=== PATIENT | female | born 1970 | race Caucasian/White ===

== ENCOUNTER 2017-10-13 11:14 | Emergency (ER) | payer MEDICAID ==
[2017-10-13] MEDS ORDERED: Lactated Ringer's 1,000 ML IV STA (12:33)
[2017-10-13 12:56] LABS: BASO % 0.7 % (0.0-2.0); HEMATOCRIT 37.9 % (34.0-47.0); LYMPH # 1.3 K/uL (1.0-4.3); LYMPH % 21.5 % (20.0-40.0); MEAN CORPUSCULAR HEMOGLOBIN 31.4 pg (27.0-31.0); MEAN CORPUSCULAR HGB CONC 34.6 g/dL (33.0-37.0); MEAN PLATELET VOLUME 9.3 fL (7.2-11.7); MONO # 0.5 K/uL (0.0-0.8); NRBC % 0.1 % (0.0-2.0); RED CELL DISTRIBUTION WIDTH 14.3 % (11.5-14.5)
[2017-10-13 13:00] LABS: MEAN CELL VOLUME 90.5 fL (81.0-99.0); WHITE BLOOD COUNT 6.1 K/uL (4.8-10.8)
[2017-10-13 13:16] LABS: ALKALINE PHOSPHATASE 77 U/L (38-126); ALT/SGPT 41 U/L (9-52); AST/SGOT 31 U/L (14-36); BILIRUBIN,TOTAL 0.4 mg/dL (0.2-1.3); BLOOD UREA NITROGEN 18 mg/dL (7-17); CALCIUM 8.5 mg/dl (8.6-10.4); CARBON DIOXIDE 25 mmol/L (22-30); CHLORIDE 100 mmol/L (98-107); GFR AFRICAN-AMERICAN 58; GLUCOSE,RANDOM 177 mg/dL (65-105); POTASSIUM 3.9 mmol/L (3.6-5.2); SODIUM 135 mmol/L (132-148); TOTAL PROTEIN 7.8 g/dL (6.3-8.3)
--- NOTE | 2017-10-13 13:29 | RAD ---
Chest x-ray single frontal view History: Cough. Comparison: 02/13/2016 Findings: No focal infiltrate or effusion. Heart size within normal limits. Impression: No focal infiltrate or effusion.
[2017-10-13 14:31] VITALS: BP 100/66; PULSE 78; RESP 18; TEMP 98.8; O2SAT 99
--- NOTE | 2017-10-13 15:13 | C.PDOC ---
History Of Present Illness 47yo female, presents for evaluation of flu like symptoms and fever since yesterday. Patient also reports a dry cough and possible sick contacts at work. She denies any chest pain, shortness of breath. Of note, patient has a secondary complaint of an itchy rash to her face present since this morning. Time Seen by Provider: 10/13/17 12:11 Chief Complaint (Nursing): Flu-like Symptoms History Per: Patient History/Exam Limitations: no limitations Onset/Duration Of Symptoms: Days Current Symptoms Are (Timing): Still Present Associated Symptoms: Cough. denies: Fever Past Medical History Reviewed: Historical Data, Nursing Documentation, Vital Signs Vital Signs: Last Vital Signs Temp 98.8 F 10/13/17 14:20 Pulse 78 10/13/17 14:20 Resp 18 10/13/17 14:20 BP 100/66 10/13/17 14:20 Pulse Ox 99 10/13/17 15:16 - Medical History PMH: Diabetes, HTN, Rheumatoid Arthritis Surgical History: Cholecystectomy Family History: States: Unknown Family Hx - Social History Hx Tobacco Use: Yes Hx Alcohol Use: No Hx Substance Use: No - Immunization History Hx Tetanus Toxoid Vaccination: No Hx Influenza Vaccination: No Hx Pneumococcal Vaccination: No Review Of Systems Except As Marked, All Systems Reviewed And Found Negative. Constitutional: Negative for: Fever Cardiovascular: Negative for: Chest Pain Respiratory: Positive for: Cough. Negative for: Shortness of Breath Skin: Positive for: Rash Physical Exam - Physical Exam Appears: Non-toxic, No Acute Distress Skin: Normal Color, Rash (macular-papular rash to face) Head: Atraumatic, Normacephalic Eye(s): bilateral: Normal Inspection Nose: Normal Oral Mucosa: Moist Neck: Normal ROM, Supple Cardiovascular: Rhythm Regular Respiratory: Normal Breath Sounds Gastrointestinal/Abdominal: Normal Exam, Soft, No Tenderness Neurological/Psych: Oriented x3 ED Course And Treatment - Laboratory Results Result Diagrams: 10/13/17 12:52 10/13/17 12:52 O2 Sat by Pulse Oximetry: 99 (RA) Pulse Ox Interpretation: Normal Progress Note: Patient to be discharged home with Tamiflu and steroids. Disposition - Disposition Referrals: Geremias Romero, [Non-Staff] - Disposition: HOME/ ROUTINE Disposition Time: 13:30 Condition: GOOD Additional Instructions: Thank you for letting us take care of you today. The emergency medical care you received today was directed at your acute symptoms. If you were prescribed any medication, please fill it and take as directed. It may take several days for your symptoms to resolve. Return to the Emergency Department if your symptoms worsen, do not improve, or if you have any other problems. Please contact your doctor or call one of the physicians/clinics you have been referred to that are listed on the Patient Visit Information form that is included in your discharge packet. Bring any paperwork you were given at discharge with you along with any medications you are taking to your follow up visit. Our treatment cannot replace ongoing medical care by a primary care provider (PCP) outside of the emergency department. Thank you for allowing the [facility] team to be part of your care today. Follow up with your doctor in 2-3 days for re-evaluation and further and management. Prescriptions: Oseltamivir Phosphate [Tamiflu] 75 mg PO BID #10 capsule predniSONE [Prednisone] 40 mg PO DAILY #10 tab Instructions: Viral Syndrome (ED) Forms: [employer] (Bangladeshi), Work Excuse - Clinical Impression Clinical Impression: Viral syndrome - Scribe Statement The provider has reviewed the documentation as recorded by the Odin Michele Provider Attestation: All medical record entries made by the Odin were at my direction and personally dictated by me. I have reviewed the chart and agree that the record accurately reflects my personal performance of the history, physical exam, medical decision making, and the department course for this patient. I have also personally directed, reviewed, and agree with the discharge instructions and disposition.
== END 2017-10-13 14:32 | disposition home or self-care (01) ==
LOC: C.ER 11:14
DX: B34.9 Viral infection, unspecified (principal); E11.9 Type 2 diabetes mellitus without complications; I10 Essential (primary) hypertension; M06.9 Rheumatoid arthritis, unspecified; Z87.891 Personal history of nicotine dependence
CPT/HCPCS: 71010; 80053; 84484; 85025; 87040; 87804; 96360; 99284; J7120

== ENCOUNTER 2018-03-24 16:40 | Emergency (ER) | payer MEDICAID ==
[2018-03-24] MEDS ORDERED: (Novolin R) Insulin Human Regular 100 units/ml vial IV STA ×2 (18:35)
[2018-03-24] MEDS ORDERED: Sodium Chloride 0.9% 1,000 ML IV ONE ×2 (18:35→19:02)
--- NOTE | 2018-03-24 18:41 | C.PDOC ---
History Of Present Illness 47 y/o female, whose PMHx includes rheumatoid arthritis, HTN and DM, presents to the ED for evaluation of generalized body pain. notes the pain is primarily in lower extremities. Patient states she has been experiencing this pain since 2011. Notes no new symptoms. She has taken medicine in the past, such as steroids, injections and Gabapentin. Admits she is currently not taking anything for her RA and has not seen her pathology tech in a while. Admits to not checking her sugar regularly. Patient denies fever, change in sensation, incontinence, swelling or redness to the joints, or any trauma/injuries. Time Seen by Provider: 03/24/18 17:45 Chief Complaint (Nursing): Pain, Chronic History Per: Patient History/Exam Limitations: no limitations Onset/Duration Of Symptoms: Days Current Symptoms Are (Timing): Still Present Additional History Per: Patient Past Medical History Reviewed: Historical Data, Nursing Documentation, Vital Signs Vital Signs: Last Vital Signs Temp 98.1 F 03/24/18 21:09 Pulse 86 03/24/18 21:09 Resp 18 03/24/18 21:09 BP 107/72 03/24/18 21:09 Pulse Ox 98 03/24/18 22:34 - Medical History PMH: Diabetes, HTN, Rheumatoid Arthritis Surgical History: Cholecystectomy Family History: States: Unknown Family Hx - Social History Hx Tobacco Use: Yes Hx Alcohol Use: No Hx Substance Use: No - Immunization History Hx Tetanus Toxoid Vaccination: No Hx Influenza Vaccination: No Hx Pneumococcal Vaccination: No Review Of Systems Musculoskeletal: Positive for: Other (generalized body pain ) Physical Exam - Physical Exam Appears: Non-toxic, No Acute Distress Skin: Normal Color, Warm, Dry, No Ecchymosis, No Other (erythema ) Head: Atraumatic, Normacephalic Eye(s): bilateral: Normal Inspection, EOMI Nose: Normal Oral Mucosa: Moist Neck: Normal ROM, Supple Chest: Symmetrical, No Deformity, No Tenderness Cardiovascular: Rhythm Regular Respiratory: Normal Breath Sounds, No Rales, No Rhonchi, No Wheezing Gastrointestinal/Abdominal: Normal Exam, Soft, No Tenderness Extremity: Normal ROM, Tenderness (diffuse joint tenderness to upper and lower extremities), Capillary Refill (less than 2 seconds ), No Swelling Extremity: Bilateral: Atraumatic, Normal Color And Temperature, Normal ROM Neurological/Psych: Oriented x3, Normal Speech, Normal Cognition, Normal Motor, Normal Sensation Gait: Steady ED Course And Treatment - Laboratory Results Result Diagrams: 03/24/18 18:58 03/24/18 18:58 O2 Sat by Pulse Oximetry: 98 (on RA) Pulse Ox Interpretation: Normal Progress Note: Bloodwork and Urinalysis ordered and reviewed. Novolin IV, Toradol IM and IV Fluids administered. On re-evaluation, patient is resting comfortably, and notes pain has improved. No neurological symtpoms . No focal deficts. No change in sensations. No headache. Mildly elevated lactate secondary to dehydration. No signs of symptoms of infection. Discussed with pt the importance of checking her sugar and risks of untreated elevated glucose. Pt verbalizes understanding. Patient was instructed to follow up with PMD in 1- 2 days for further evaluation. Disposition - Disposition Disposition: HOME/ ROUTINE Disposition Time: 20:48 Condition: STABLE Additional Instructions: Follow up with your RA doctor in 1-2 days. Return to ER if symptoms persist or worsen. Prescriptions: Gabapentin [Neurontin] 300 mg PO DAILY #14 cap Naproxen [Naprosyn] 1 tab PO BID PRN #20 tab PRN Reason: Pain Instructions: Rheumatoid Arthritis (DC) Forms: [employer] (Divehi) - Clinical Impression Clinical Impression: Hyperglycemia, Rheumatoid arthritis - PA / RESEARCH INSTRUMENTATION TECHNICIAN / Resident Statement MD/DO has reviewed & agrees with the documentation as recorded. - Scribe Statement The provider has reviewed the documentation as recorded by the Scribe (Yaquelin Mark) All medical record entries made by the Scribe were at my direction and personally dictated by me. I have reviewed the chart and agree that the record accurately reflects my personal performance of the history, physical exam, medical decision making, and the department course for this patient. I have also personally directed, reviewed, and agree with the discharge instructions and disposition.
[2018-03-24 19:01] LABS: BASO # 0.1 K/uL (0.0-0.2); BASO % 0.9 % (0.0-2.0); EOS # 0.3 K/uL (0.0-0.7); EOS % 2.7 % (0.0-4.0); HEMOGLOBIN 12.3 g/dL (11.0-16.0); LYMPH # 2.6 K/uL (1.0-4.3); LYMPH % 21.5 % (20.0-40.0); MEAN CELL VOLUME 90.3 fL (81.0-99.0); MEAN CORPUSCULAR HEMOGLOBIN 31.1 pg (27.0-31.0); MEAN CORPUSCULAR HGB CONC 34.5 g/dL (33.0-37.0); MEAN PLATELET VOLUME 9.6 fL (7.2-11.7); MONO % 8.1 % (0.0-10.0); NEUT # 8.2 K/uL (1.8-7.0); NEUT % 66.8 % (50.0-75.0); NRBC % 0.1 % (0.0-2.0); RBC 3.96 Mil/uL (3.80-5.20); RED CELL DISTRIBUTION WIDTH 14.1 % (11.5-14.5); WHITE BLOOD COUNT 12.3 K/uL (4.8-10.8)
[2018-03-24 19:05] LABS: SQUAMOUS EPITHIAL 4 /hpf (0-5); URINE BILIRUBIN NEGATIVE (NEGATIVE); URINE CLARITY Clear (Clear); URINE COLOR Straw (YELLOW); URINE GLUCOSE (UA) 3+ mg/dL (Normal); URINE HYALINE CAST 0-2 /lpf (0-2); URINE LEUKOCYTE ESTERASE NEG Leu/uL (Negative); URINE PROTEIN NEGATIVE (NEGATIVE); URINE UROBILINOGEN NORMAL mg/dL (0.2-1.0)
[2018-03-24] MEDS ORDERED: (Novolin R) Insulin Human Regular 100 units/ml vial ONE (19:12)
[2018-03-24 19:15] LABS: URINE BLOOD TRACE (NEGATIVE)
[2018-03-24 19:16] LABS: HCG,QUALITATIVE URINE NEGATIVE (NEGATIVE)
[2018-03-24 19:17] LABS: VENOUS BLOOD GAS BASE EXCESS -0.2 mmol/L (0.0-2.0); VENOUS BLOOD GAS PCO2 44 mmHg (40-60); VENOUS BLOOD GAS PO2 31 mm/Hg (30-55); VENOUS BLOOD PH 7.37 (7.32-7.43)
[2018-03-24 19:24] LABS: ALB/GLOB RATIO 0.9 (1.0-2.1); ALBUMIN 3.9 g/dL (3.5-5.0); ALT/SGPT 25 U/L (9-52); AST/SGOT 27 U/L (14-36); BLOOD UREA NITROGEN 19 mg/dL (7-17); CALCIUM 9.9 mg/dl (8.6-10.4); GFR AFRICAN-AMERICAN > 60; GFR NON-AFRICAN AMERICAN 53
[2018-03-24 19:27] VITALS: RESP 18
[2018-03-24 21:10] VITALS: BP 107/72; PULSE 86; TEMP 98.1
[2018-03-24 21:23] VITALS: O2SAT 98
== END 2018-03-24 21:10 | disposition home or self-care (01) ==
LOC: C.ER 16:40
DX: E11.65 Type 2 diabetes mellitus with hyperglycemia (principal); M06.9 Rheumatoid arthritis, unspecified; I10 Essential (primary) hypertension; F17.210 Nicotine dependence, cigarettes, uncomplicated
CPT/HCPCS: 80053; 81001; 82009; 82803; 82948; 84703; 85025; 96361; 96372; 96374; 99285; J1885; J7030